=== PATIENT | female | born 1950 | race Caucasian/White ===

== ENCOUNTER → 2021-02-11 | Outpatient (CLI) | payer OTHER ==
--- NOTE | 2021-02-11 17:02 | RAD ---
EXAM: US GDE NDL BX/ASPIR/INJ/LOC, MG DIAGNOSTICUNILAT MAMMO 02/11/2021 8:28 AM INDICATION: Right breast mass at 2:30 10 cm from the nipple COMPARISON: Right breast mammogram and ultrasound 01/23/2021 TECHNIQUE/FINDINGS: The purpose of the procedure, risks and benefits were explained to the patient. Informed consent was obtained. A timeout was performed. The patient was placed supine on the ultrasound table. The mass at 2:30, 10 cm from the nipple in the right reast was identified and overlying skin marked, prepped, draped in standard sterile fashion. S kin was anesthetized with 1 percent lidocaine. Next, 6 core biopsy samples were obtained with a coaxi al 14-gauge biopsy device. Samples were placed in formalin and sent to the laboratory for analysis. A biopsy marker was then placed at the biopsy site under ultrasound. Cardington were removed, pressure he ld for hemostasis, and skin cleansed and covered with a dressing. The patient tolerated the procedure well and left in stable condition. Post clip mammogram demonstrates appropriate position of clip near the mass at 2:30 10 cm the nipple. IMPRESSION:Technically successful ultrasound-guided biopsy of right breast mass and clip placement. Electronically signed by: Shy Lucas MD (02/11/2021 4:59 PM) [id number]
--- NOTE | 2021-02-12 17:07 | PATHOLOGY ---
[facility] Accession Number: [id number] . 01 Material submitted: . breast - RIGHT BREAST TISSUE 2:30 10 CMFN. Modifiers: right . 02 Diagnosis: Breast and focal skeletal muscle tissue, right breast mass 2:30 needle biopsies: - INVASIVE DUCTAL CARCINOMA, HISTOLOGIC GRADE 2. SEE COMMENT. - FOCAL PERINEURAL TUMOR INVASION IDENTIFIED. LBQ 02/12/2021 1626 Local . 02 Comment: Sections of the right breast mass 2:30 needle biopsy reveal an invasive mammary carcinoma. Tumor cells are generally present in solid nests but do show focal tubule formation. The tumor is associated with a reactive desmoplastic stroma, and tumor cells focally infiltrate fatty tissue. Tumor cells show mild to moderate nuclear atypia. Only an occasional mitotic figure is demonstrated. There is focal perineural tumor invasion. There is no lymphovascular tumor invasion. There is a rare tumor associated calcification. The tumor measures up to 6 mm in greatest dimension on the glass slide. Breast prognostic studies will be obtained on block A2, the results of which will be reported separately. The case is also examined by Dr. Dhillon, who concurs with the diagnosis. (JPM/db; 02/12/2021) . 02 Electronically signed: . Ross Collins MD, Pathologist NPI- [id number] . 01 Gross description: . The specimen is received in formalin, labeled "Lashanda Ledbetter, right breast 2:30 10 cm from nipple". Received are multiple needle cores of fibrofatty tissue measuring 1.4 x 1.2 x 0.2 cm in aggregate dimensions. The specimen is submitted entirely in cassettes A1 through A3. The cold ischemic time is 1 minute. The total formalin fixation time is 12 hours and 32 minutes. (CAA; 02/11/2021) QAC/QAC 02/11/2021 1608 Local . 02 Pathologist provided ICD-10: C50.911 . 02 CPT . 622188 Specimen Comment: A courtesy copy of this report has been sent to [phone] Specimen Comment: Report sent to Performed at: 01 [facility] [address], [place] [id number] MD Andrew Dhillon MD Phone: [phone] Performed at: 02 [facility] [address] [place], [place] [id number] MD Ross Collins MD Phone: [phone]
== END | disposition home or self-care (01) ==
LOC: US 08:18
PROVIDERS: ATTEND Physician Assistant Medical
DX: N63.12 Unspecified lump in the right breast, upper inner quadrant (principal); Z79.899 Other long term (current) drug therapy
CPT/HCPCS: 19083; 77065; 88305; 88361; A4648; 76942

== ENCOUNTER → 2021-03-10 | Outpatient (CLI) | payer OTHER ==
[~2021-03-10] MED LIST: AMAN100T PO; CALC-71 PO; CYAN250012 PO; DIVA-51 PO; FLUT50BL IH; GABA600T7 PO; MELO15TA23 PO; MULT-445 PO; QUET300T5 PO; TRAZ-118 PO; VENTOLIN HFA18 GM INH
== END ==
LOC: LAB 09:53
PROVIDERS: ATTEND Surgery
DX: Z01.812 Encounter for preprocedural laboratory examination (principal); Z90.11 Acquired absence of right breast and nipple; Z20.822 Contact with and (suspected) exposure to COVID-19
CPT/HCPCS: U0003; U0005

== ENCOUNTER 2021-03-13 07:39 | Day surgery (SDC) | payer OTHER ==
[~2021-03-13] VITALS: Ht 162.6 cm; Wt 86.0 kg
[~2021-03-13 07:39] MED LIST changes: +ACETAMINOPHEN 500 MG TABLET PO PRN; +HYDROmorphone 2 MG/ML VIAL IVP PRN; +IV RINGERS,LACTATED 1000ML 1,000 ML IV SCH; +MORPHINE SULFATE 2 MG/ML VIAL. IVP PRN; +fentaNYL PF VIAL 100 MCG/2 ML VIAL IVP PRN
[2021-03-13] MEDS ORDERED: fentaNYL PF VIAL 100 MCG/2 ML VIAL ONE (08:04)
[2021-03-13] MEDS ORDERED: PROPOFOL 10 MG/ML (20ML) VIAL. IV ONE (08:04)
[2021-03-13] MEDS ORDERED: LIDOCAINE 2% PF 5 ML VIAL. ONE (08:04)
[2021-03-13 08:41] VITALS: BP 158/98
[2021-03-13] MEDS ORDERED: BUPIVACAINE-EPI 0.25% 30 ML VIAL KIT. ONE (08:55)
[2021-03-13] MEDS ORDERED: ISOSULFAN BLUE 1% 50 MG/5 ML VIAL. SQ ONE (08:55)
--- NOTE | 2021-03-13 09:40 | RAD ---
Lymphoscintigraphy of right breast History: Right breast cancer. Technique: A timeout was performed which confirmed the name of the patient and date of and the type of procedure and the side of the procedure. This is confirmed with the patient's recent imaging. The anterior aspect of the upper inner quadrant of the right breast between the areola and the biops y site was sterilized with ChloraPrep. Anesthetic spray was applied to this area. Using sterile techn ique, 1.0 mCi of Lymphoseek in 0.3 cc of sterile normal saline was injected subcutaneously and intrad ermally within the upper inner quadrant of the right breast between the areola and the biopsy site. T his area was massaged for 5 minutes. The patient tolerated the procedure well without complication. N o images were obtained. Subsequently, the patient was taken to the surgery suite. Impression: Lymphoscintigraphy of the right breast was performed as discussed above. Electronically signed by: Adonay Riddle MD (03/13/2021 9:38 AM) [id number]
[2021-03-13] MEDS ORDERED: ONDANSETRON PF 4 MG/2 ML VIAL. ONE (10:17)
[2021-03-13] MEDS ORDERED: SEVOFLURANE 61 TO 120 MINUTES. IH ONE ×2 (10:17→11:10)
[2021-03-13] MEDS ORDERED: DEXAMETHASONE SOD PHOS 4 MG/ML VIAL ONE (10:17)
[2021-03-13] MEDS ORDERED: PHENYLEPHRINE in 0.9% NACL PF 1 MG/10 ML SYRINGE. IV ONE (10:40)
[2021-03-13] MEDS ORDERED: PROCHLORPERAZINE 10 MG/2 ML VIAL. ONE (11:57)
[2021-03-13] MEDS: PROCHLORPERAZINE 10 MG/2 ML VIAL. IVP PRN ×2 (11:58→12:15)
[2021-03-13] MEDS ORDERED: oxyCODONE/APAP 5/325 1 TAB TABLET PO ONE (12:15)
--- NOTE | 2021-03-13 12:15 | PDOC4 ---
Operative Note Operative Note Date: March 132020 at 1211 Preoperative diagnosis: Right breast cancer Postoperative diagnosis: Same Procedure: Right breast lumpectomy with sentinel lymph node biopsy Surgeon: Zafar Specimen: Right sentinel lymph node and right lumpectomy breast tissue Dictation: Patient is a 70-year-old female had undergone a stereotactic breast biopsy was found to have a ductal carcinoma of the right breast. Procedure of sentinel lymph node biopsy and lumpectomy were explained to the patient detail risk benefits were also discussed including bleeding infection alternatives this procedure also discussed with the patient who seemed to understand and gave a verbal written consent to have the procedure performed. Patient was taken to the operating room placed in supine position general anesthesia was initiated once patient was sleeping abated her her right chest and axilla were prepped and draped usual sterile fashion using ChloraPrep. An area around the nipple areolar complex was injected with Lymphazurin this was massaged in place for 8 minutes. Using the C-Trak area in the right axilla was determined to have the highest count this area was injected with quarter percent Marcaine with epinephrine incision was made with a 15 blade scalpel this carried down through the subcutaneous tissues electrocautery right hemostasis a lymph node was visualized at the end of a lymph channel that was blue as well as having a very high count of over 600 by the C-Trak. This lymph node was sent for pathology. Tensions were then turned to the right breast area over the biopsy site was injected with quarter percent Marcaine with epinephrine incision with a 15 blade scalpel lumpectomy was performed using electrocautery and sharp dissection the tissue was carried down all the way to the chest wall taken off the pectoralis muscle and circumferentially superiorly inferiorly and laterally. Tissue was marked with suture with a deep margin marked with 2 sutures the lateral margin marked with a long suture in the medial margin marked with a short suture and sent for pathology. Wound was irrigated and suctioned dry hemostasis deemed appropriate and the wounds were closed in 2 layers of deep layer running 3-0 Vicryl and skin was reapproximated for subcuticular Monocryl Mastisol Steri- Strips and island dressings were applied. Patient was awakened extubated in the operating room taken to recovery in stable condition all sponge instrument needle counts listed as correct estimated blood loss 20 mL RACHEL SIDDIQUI MD March 13, 2021 12:14
--- NOTE | 2021-03-13 12:16 | DISCH ---
DISCHARGE INSTRUCTIONS Condition on Discharge Condition on Discharge: Stable Activity After Discharge Activity Instructions for Disc: Avoid exertion Other activity instructions: No strenuous activity with the right arm for 2 weeks Diet after Discharge Diet after Discharge: Regular Wound Incision Care Other wound/incision instructi: Beckie shower in 24 hours Contacting the after DC Call your doctor for: If your condition worsens Follow-Up Follow up with: Dr. Siddiqui in 2 weeks RACHEL SIDDIQUI MD March 13, 2021 12:16
[2021-03-13 12:19] VITALS: BP 109/71
--- NOTE | 2021-03-13 15:05 | RAD ---
RADIOGRAPH OF THE SURGICAL SPECIMEN Clinical indications: Right breast cancer. Lumpectomy. FINDINGS: Radiograph of the surgical specimen was performed in the holding device. The biopsy clip is not apparent. This finding was conveyed to the surgeon in the operating room immediately after completion of the radiograph. No mammographic mass is seen. IMPRESSION: Biopsy clip is not identified within the surgical specimen radiograph.
--- NOTE | 2021-03-19 09:13 | PATHOLOGY ---
[facility] Accession Number: [id number] . 01 Material submitted: . PART A: breast - SENTINEL LYMPH NODE RIGHT BREAST. Modifiers: right PART B: breast - RIGHT BREAST TISSUE. Modifiers: right . 01 Clinical history: . B. DOUBLE STITCH DEEP MARGIN SHORT STITCH MEDIAL LONG STITCH LATERAL . 02 Diagnosis: A. Lymph node and fibroadipose tissue, sentinel lymph node right breast excisional biopsy: - Negative for tumor (0/1). . B. Breast tissue, right breast lumpectomy: - No previous biopsy site changes or residual invasive ductal carcinoma identified. - Proliferative fibrocystic changes, focal, with the following components: - Moderate/florid ductal epithelial hyperplasia, focal. - Stromal fibrosis. - Duct ectasia. - Cystic change. - Sclerosing adenosis, focal. (JPM:dodie; 03/17/2021) [facility] 03/17/2021 1506 Local . 02 Comment: Special stains performed: Immunoperoxidase stains for AE1/AE3 on A1, A2, A3 and A4. (JPM:dodie; 03/17/2021) . 02 Electronically signed: . Ross Collins MD, Pathologist NPI- [id number] . 01 Gross description: . A. The specimen is received in formalin, labeled "Lashanda Ledbetter, [place] lymph node right breast" is a 3.5 x 2.7 x 1.5 cm soft pink-kirkpatrick lymph node entirely submitted A1-A4. . B. Fixative: formalin Labeled: Right breast tissue double stitch deep margin, short stitch medial, long stitch lateral Specimen received is an intact lumpectomy Oriented: Short stitch medial, long stitch lateral and double stitch deep Dimensions: 10 x 8.5 x 1.7 cm Weight: 82 gms . The specimen is inked as follows: Superior-red Inferior-blue Anterior-green Posterior/Deep-black Lateral-orange Medial-yellow . Sectioned from: lateral to medial Number of slices: 20 with slice 1 as lateral Lesions or previous biopsy sites are not identified. Specimen composed of less than 10% barakat-white fibrous tissue Biopsy clip: none Biopsy site or hemorrhage: Not identified Uninvolved breast parenchyma: fibrofatty . Project Manager sections are submitted in 20 cassettes as follows: 1 lateral margin shaved and perpendicularly sectioned-entire slice 1 2-19 sequentially submitted sections towards the medial margin 2 Part of slice 4 3-4 Part of slice 6 5-6 Part of slice 9 7-9 part of slice of 10 10-14 Entire slice 12 15-16 Part of slice 13 17-18 Part of slice 16 19-20 entire medial margin shaved and perpendicularly sectioned--entire slice 19 . The specimen is removed from the patient at 1102 hours and placed in formalin at 1150 hours on Saturday, March 13, 2021. The specimen is removed from formalin at 11:30pm. The specimen is in formalin for greater than 6 hours and less than 72 hours. ([facility]; 03/13/2021) . After initial microscopic examination, extensive palpation and sectioning reveals no grossly distinct previous biopsy site or clip. There is an indurated area, within white-kikrpatrick fibrous tissue, measuring 2.9 x 1.3 cm. Sectioning through this area reveals no biopsy site changes. This site is located within slice 12, and grossly approaches the inferior margin. This site is entirely submitted in cassettes B21 and B22. ([facility]; 03/18/2021) LOBO/LOBO 03/18/2021 1115 Local . 02 Pathologist provided ICD-10: N60.11, N62, N60.31, N60.81, N80.0 . 02 CPT . 298446, 499355, L82529 Specimen Comment: A courtesy copy of this report has been sent to [phone] Specimen Comment: Report sent to Performed at: 01 [facility] [address], [place], [place] [id number] MD Andrew Dhillon MD Phone: [phone] Performed at: 02 [facility] [address], [place] [id number] MD Ross Collins MD Phone: [phone]
== END 2021-03-13 12:55 | disposition home or self-care (01) ==
LOC: SURG 07:39
PROVIDERS: ATTEND Surgery
DX: C50.911 Malignant neoplasm of unspecified site of right female breast (principal); N60.11 Diffuse cystic mastopathy of right breast; N60.81 Other benign mammary dysplasias of right breast; K21.9 Gastro-esophageal reflux disease without esophagitis; J45.909 Unspecified asthma, uncomplicated; M19.90 Unspecified osteoarthritis, unspecified site; F41.9 Anxiety disorder, unspecified; F32.9 Major depressive disorder, single episode, unspecified; Z90.710 Acquired absence of both cervix and uterus; Z98.890 Other specified postprocedural states; Z79.899 Other long term (current) drug therapy; Z87.891 Personal history of nicotine dependence; Z72.89 Other problems related to lifestyle; Z88.8 Allergy status to other drugs, medicaments and biological substances
CPT/HCPCS: 19301; 38525; 38792; 38900; 76098; 88307; 88342; 96374; A4209; A4364; A4930; A6219; A6402; A9520; J0690; J0780; J1100; J2370; J2405; J2704; J3010; Q9968; A4452

== ENCOUNTER 2021-04-16 07:03 | Day surgery (SDC) | payer OTHER ==
[~2021-04-16] VITALS: Ht 162.6 cm; Wt 80.5 kg
[~2021-04-16 07:03] MED LIST changes: -ACETAMINOPHEN 500 MG TABLET PO PRN; +PROCHLORPERAZINE 10 MG/2 ML VIAL. IVP PRN
[2021-04-16] MEDS ORDERED: BUPIVACAINE-EPI 0.25% 30 ML VIAL KIT. ONE (07:19)
[2021-04-16] MEDS ORDERED: ISOSULFAN BLUE 1% 50 MG/5 ML VIAL. SQ ONE (07:19)
[2021-04-16 07:24] VITALS: BP 133/58
[2021-04-16] MEDS ORDERED: ACETAMINOPHEN 500 MG TABLET PO ONE (07:32)
[2021-04-16] MEDS ORDERED: MIDAZOLAM HCL/PF 2 MG/2 ML VIAL. ONE (07:52)
[2021-04-16] MEDS ORDERED: fentaNYL PF VIAL 100 MCG/2 ML VIAL ONE ×2 (07:52→10:26)
[2021-04-16] MEDS ORDERED: DEXAMETHASONE SOD PHOS 4 MG/ML VIAL ONE (07:53)
[2021-04-16] MEDS ORDERED: SEVOFLURANE 61 TO 120 MINUTES. IH ONE (07:53)
[2021-04-16] MEDS ORDERED: PROPOFOL 10 MG/ML (20ML) VIAL. IV ONE (07:53)
[2021-04-16] MEDS ORDERED: ONDANSETRON PF 4 MG/2 ML VIAL. ONE (07:53)
[2021-04-16] MEDS ORDERED: LIDOCAINE 2% PF 5 ML VIAL. ONE (07:53)
--- NOTE | 2021-04-16 09:22 | RAD ---
MG DIAGNOSTICUNILAT MAMMO, US GDE NDL BX/ASPIR/INJ/LOC HISTORY: The patient is 70 years old and is seen for Reason: Right breast mass. Wire localization. PO ST CLIP PLACEMENT / Spl. Instructions: / History: . COMPARISON: January 06, 2021 and February 11, 2021 TECHNIQUE: Ultrasound-guided right breast mass wire localization. Risks and benefits were explained t o the patient. Consent was obtained. The site was marked. The overlying skin of the right breast was prepped and draped in usual sterile fashion. Skin was anesthetized with 1 percent lidocaine. Needle w as passed into the mass and wire was passed through the needle into the mass. Needle was removed. Hem ostasis was obtained. Wire was fixed to the skin. Sterile dressing applied. CC and MLO views of right breast were obtained. DENSITY: There are scattered fibroglandular densities. FINDINGS: Ultrasound: The mass is immediately adjacent to the chest wall. The wire was passed through the mass and the deployed anterior to the chest wall. Post mammogram: Changes of recent lumpectomy within the medial breast as well as axillary node dissec tion. The J portion of the wire is positioned immediately adjacent to the mass and the tip of the wir e is 2 mm from the biopsy marker on MLO view. The mass is immediately adjacent to the chest wall. IMPRESSION: 1. Successful left medial posterior breast mass wire localization. 2. Distal aspect of the wire is immediately adjacent to the mass along the chest wall. BI-RADS category 6 Known breast carcinoma FOR INTERNAL CODING PURPOSES Critical result: Findings discussed with Dr. Stephen at 04/16/2021 9:19 AM. RESULT CODE: (C) Electronically signed by: Dung Llanes DO (04/16/2021 9:20 AM) [id number]
--- NOTE | 2021-04-16 10:11 | PDOC4 ---
Operative Note Operative Note Date: April 16, 2021 at 1008 Preoperative diagnosis: Right breast cancer Postoperative diagnosis: Same Procedure: Reexcision lumpectomy right breast post needle local Surgeon: Zafar Specimen: Right breast tissue Dictation: Patient is a 70-year-old female who underwent breast biopsy showed invasive ductal carcinoma the breast previously underwent a lumpectomy with incomplete margins returns today for reexcision under needle localization. Patient underwent needle localization in radiology who reported that the mass was just on the chest wall very deep. Procedure of breast lumpectomy was explained to the patient detail risk benefits were also discussed including bleeding infection alternatives this procedure also discussed with the patient who seemed to understand and gave both verbal and written consent to have the procedure performed. Patient was taken to the operating room placed in supine position general anesthesia was initiated once patient was sleeping abated her right chest were prepped and draped in usual sterile fashion using ChloraPrep. An area around the needle was injected with quarter percent Marcaine with epinephrine elliptical incision was made around the needle with 15 blade scalpel is carried down through the subcutaneous tissue using electrocautery right hemostasis of the previous and incision cavity was encountered the needle was followed down the needle was all the way to the chest wall excision was performed all the way down to the chest wall including a small amount of muscle from the chest wall. Specimen was sent for pathology with the long suture in the lateral position the small suture in the medial position and 2 sutures on the deep portion of the specimen. The wound was then closed in 2 layers deep layer running 3-0 Vicryl and the skin was reapproximated for subcuticular Monocryl Mastisol Steri-Strips and island dressings were applied. Patient was awakened and extubated in the operating room taken to recovery in stable c ondition all sponge instrument needle counts listed as correct estimated blood loss 5 mL. RACHEL SIDDIQUI MD Apr 16, 2021 10:11
[2021-04-16] MEDS ORDERED: PROCHLORPERAZINE 10 MG/2 ML VIAL. ONE (10:26)
[2021-04-16 10:40] VITALS: BP 116/58
--- NOTE | 2021-04-16 10:57 | DISCH ---
DISCHARGE INSTRUCTIONS Condition on Discharge Condition on Discharge: Stable Activity After Discharge Activity Instructions for Disc: Avoid exertion Diet after Discharge Diet after Discharge: Regular Wound Incision Care Other wound/incision instructi: May shower in 24 hours Contacting the after DC Call your doctor for: If your condition worsens Follow-Up Follow up with: Dr. Siddiqui in 2 weeks RACHEL SIDDIQUI MD Apr 16, 2021 10:57
[2021-04-16] MEDS ORDERED: oxyCODONE/APAP 5/325 1 TAB TABLET PO ONE (11:15)
--- NOTE | 2021-04-21 18:06 | PATHOLOGY ---
[facility] Accession Number: [id number] . 01 Material submitted: . breast - RIGHT BREAST TISSUE. Modifiers: right . 01 Clinical history: . LONG STITCH LATERAL SHORT STITCH MEDIAL DOUBLE STITCH DEEP RIGHT BREAST LUMPECTOMY LUMPECTOMY REEXCISION OBTAINED 09 FORMALIN 1003 RIGHT BREAST EVASIVE DUCT . 02 Diagnosis: Skin and breast tissue, wire localized oriented right breast lumpectomy: - Focal residual invasive ductal carcinoma, histologic grade I-II, is identified within region of previous biopsy site, measuring approximately 5 mm in greatest dimension. - Residual invasive carcinoma is approximately 1 mm from the closest inked deep margin of resection. - No lymphovascular tumor invasion identified. - Previous biopsy site changes. - Previous lumpectomy site comprised of a cavity with surrounding reactive fibrosis, fat necrosis, focal chronic inflammation, and foreign body giant cell and focal suture granulomatous reaction. - Medial arterial calcification, focal. (JPM:jose; 04/21/2021) [facility] 04/21/2021 1327 Local . 02 Electronically signed: . Ross Collins MD, Pathologist NPI- [id number] . 01 Gross description: . Received in formalin labeled "Lashanda Ledbetter and right breast tissue, long stitch-lateral, short stitch-medial, double stitch-deep". Received is a suture oriented right breast lumpectomy measuring 8.5 x 5.0 x 2.0 cm and weighing 35 g. The specimen is oriented and inked as follow: long stitch-lateral (orange), short stitch-medial (red), double stitch-deep (black), superior (blue), inferior (green), and anterior (yellow). The specimen is sectioned from medial to lateral, and anterior to deep. The lumpectomy has a medially inserted localization wire extending laterally 1.5 cm into a firm kirkpatrick-brown lesion measuring 0.5 x 0.5 x 0.3 cm. The lesion is located 0.2 cm from the green inked margin and 1.2 cm from the yellow inked margin (slice 5). The medial aspect of the breast has an oriented elliptical excision of skin measuring 1.6 x 1.0 and excised to 0.4 cm. The skin surface is grossly unremarkable, and the subcutaneous tissue has multiple nodular yellow lesions ranging from 0.2-0.6 cm. Additional sectioning reveals a previously opened cavity space measuring 2.0 x 1.5 x 1.5 cm, 0.2 cm from the blue inked margin, and 0.1 cm from the black inked margin. The remaining uninvolved breast tissue is glistening yellow fibroadipose tissue. The specimen is sectioned into 13 slices. Slice 1 (medial most) and slice 13 (lateral most). The specimen is entirely submitted in cassettes A1 through A13. . A1 and A2 - perpendicular sections of slice #1, medial most, red ink A3 and A4 - slice #2, nodular yellow lesions, medially adjacent to cavity space A5 and A6 - slice #3, beginning of cavity space A7 and A8 - slice #4, additional sections of cavity space A9 - slice #5, end of cavity space, site of localization wire tip A10 - slice #5, end of cavity space, firm fibrous lesion A11 and A12 - slice #6, laterally adjacent to cavity space A13 and A14 - slice #7, uninvolved fibroadipose A15 and A16 - slice #8 A17 and A18 - slice #9 A19 and A20 - slice #10 A21 and A22 - slice #11 A23 and A24 - slice #12 A25 and A26 - slice #13, lateral most, orange inked (BLJ; 04/16/2021) BLJ/BLJ 04/21/2021 1323 Local . 02 Pathologist provided ICD-10: C50.911, N60.31, N64.1, N61.0 . 02 CPT . 731179 Specimen Comment: A courtesy copy of this report has been sent to [phone] Specimen Comment: [phone] Specimen Comment: Report sent to / DR BRIDGES Performed at: [address] [facility], [place] [id number] MD Andrew Dhillon MD Phone: [phone] Performed at: 02 [facility] [address] [place], [place] [id number] MD Ross Collins MD Phone: [phone]
== END 2021-04-16 11:18 | disposition home or self-care (01) ==
LOC: SURG 07:03
PROVIDERS: ATTEND Surgery
DX: R92.8 Other abnormal and inconclusive findings on diagnostic imaging of breast (principal); C50.911 Malignant neoplasm of unspecified site of right female breast; N60.31 Fibrosclerosis of right breast; N64.1 Fat necrosis of breast; J43.9 Emphysema, unspecified; K21.9 Gastro-esophageal reflux disease without esophagitis; M19.90 Unspecified osteoarthritis, unspecified site; F41.9 Anxiety disorder, unspecified; F32.9 Major depressive disorder, single episode, unspecified; Z90.710 Acquired absence of both cervix and uterus; Z98.890 Other specified postprocedural states; Z79.899 Other long term (current) drug therapy; Z87.891 Personal history of nicotine dependence; Z72.89 Other problems related to lifestyle; Z88.8 Allergy status to other drugs, medicaments and biological substances
CPT/HCPCS: 19301; 76942; 77065; A4209; A4364; A4930; C1819; J0780; J1100; J2250; J2405; J2704; J3010; A4223; A4452; J0690; Q9968

== ENCOUNTER → 2021-06-01 | Outpatient (CLI) | payer OTHER ==
[~2021-06-01] MED LIST changes: -HYDROmorphone 2 MG/ML VIAL IVP PRN; -IV RINGERS,LACTATED 1000ML 1,000 ML IV SCH; -MORPHINE SULFATE 2 MG/ML VIAL. IVP PRN; -PROCHLORPERAZINE 10 MG/2 ML VIAL. IVP PRN; -fentaNYL PF VIAL 100 MCG/2 ML VIAL IVP PRN
--- NOTE | 2021-06-01 11:25 | RAD ---
EXAM: Chest, 2 views. HISTORY: Breast cancer. COMPARISON: None. FINDINGS: 2 views of the chest are obtained. There is no infiltrate, pleural effusion or pneumothorax . The heart is normal in size. There are healed left rib fracture. IMPRESSION: No acute pulmonary finding. Electronically signed by: Casi Sanches MD (06/01/2021 11:22 AM) [id number]
== END ==
LOC: RAD 10:05
PROVIDERS: ATTEND Radiology Radiation Oncology
DX: C50.211 Malignant neoplasm of upper-inner quadrant of right female breast (principal); S22.32XD Fracture of one rib, left side, subsequent encounter for fracture with routine healing; X58.XXXD Exposure to other specified factors, subsequent encounter
CPT/HCPCS: 71046

== ENCOUNTER → 2021-09-17 | Outpatient (CLI) | payer OTHER ==
--- NOTE | 2021-09-17 15:43 | KCIC ---
EXAM: Lumbar spine MRI without contrast. HISTORY: Pain. TECHNIQUE: Multiplanar, multisequence magnetic resonance imaging of the lumbar spine was performed wi thout contrast. COMPARISON: None. FINDINGS: There is a mild chronic appearing right-sided compression fracture of L3 with approximately 50 percent loss of right-sided vertebral body height. There is no significant retropulsion of the co rtex at this level. No acute or subacute vertebral fracture is seen. There is edema within the bilate ral sacrum likely due to sacral insufficiency fractures, partially included on the bzajn-ls-uelt. The re are few small incidental Tarlov cysts within the sacral canal. There are few dilated nerve root sh eath cysts/perineural cysts within the lower thoracic extraforaminal spaces. There is 3 mm grade 1 anterolisthesis of L5 on S1. There is 2 mm retrolisthesis of L2 on L3 and L3 on L4. There is multilevel endplate remodeling. There are multiple osseous hemangiomas. The conus termi nates at L1-L2. There is a large amount stool within the rectosigmoid colon. At T12-L1, there is a left paracentral disc protrusion and annular tear with minimal inferior extrusi on. There is no stenosis. At L1-L2, there is a posterior central to right paracentral disc protrusion and annular tear superimp osed on a disc bulge and endplate remodeling. There is mild left foraminal stenosis. At L2-L3, there is a right lateral recess to foraminal disc protrusion and slight superior and inferi or extrusion superimposed on a disc bulge and endplate remodeling. There is mild right greater than l eft facet arthropathy. There is mild retrolisthesis. There is moderate right and mild left foraminal stenosis. There is mild central canal stenosis and narrowing of the right lateral recess. At L3-L4, there is a disc bulge and endplate remodeling. There is mild bilateral facet arthropathy. T here is no stenosis. At L4-L5, there is a disc bulge and endplate remodeling. There is no stenosis. At L5-S1, there is a disc bulge and left lateral predominant endplate remodeling. There is mild right and severe left facet arthropathy. There is grade 1 anterolisthesis. There is mild to moderate left foraminal stenosis. There is narrowing of the left lateral recess. IMPRESSION: 1. Edema within the bilateral sacrum, partially included on the jwvun-ob-ehzu and likely due to acute or subacute insufficiency fractures. Correlate for pain in this location. This can be better charact erized with a CT or pelvic MRI. 2. Multilevel degenerative change within the lumbar spine, described in detail above. This results in stenosis as before mentioned levels. 3. Lumbar scoliosis and multilevel listhesis. 4. Chronic L3 compression fracture. Electronically signed by: Casi Sanches MD (09/17/2021 3:41 PM) [id number]
== END ==
LOC: KCIC MRI 10:02
PROVIDERS: ATTEND Physician Assistant Medical
DX: M47.817 Spondylosis without myelopathy or radiculopathy, lumbosacral region (principal); M51.25 Other intervertebral disc displacement, thoracolumbar region; M48.07 Spinal stenosis, lumbosacral region; M43.17 Spondylolisthesis, lumbosacral region; D18.09 Hemangioma of other sites; M51.27 Other intervertebral disc displacement, lumbosacral region
CPT/HCPCS: 72148